=== PATIENT | male | born 1995 | race African-American/Black ===

== ENCOUNTER 2025-05-05 03:12 | Inpatient (IN) | payer MEDICAID ==
[~2025-05-05] VITALS: Ht 188 cm; Wt 92.5 kg
[2025-05-05 03:16] VITALS: O2SAT 96
[2025-05-05] MEDS: KETOROLAC 15MG/ML VIAL IV ONE (04:20)
[2025-05-05 04:32] LABS: HEMATOCRIT. 46.6 % (42.0-52.0); HEMOGLOBIN. 15.4 g/dL (14.0-18.0); MEAN PLATELET VOLUME 10.4 fl (7.4-10.4); PLATELET 184 x1000/uL (130-400); RED BLOOD CELL COUNT 5.42 mill/uL (4.7-6.1); RED CELL DISTRIBUTION WIDTH 13.6 % (11.6-14.6)
[2025-05-05 04:49] LABS: CREATININE 1.1 mg/dL (0.6-1.3)
[2025-05-05 04:50] LABS: UREA NITROGEN BLOOD 9 mg/dL (9-23)
[2025-05-05 04:51] LABS: ASPARTATE AMINOTRANSFERASE 16 IU/L (<34)
[2025-05-05 04:52] LABS: BILIRUBIN DIRECT 0.5 mg/dL (<=3.0); BILIRUBIN TOTAL 1.5 mg/dL (0.1-1.0); PROTEIN TOTAL 8.9 g/dL (6.0-8.3)
[2025-05-05] MEDS: SODIUM CHLORIDE 0.9% (SEPSIS BOLUS) IV ONE (04:52)
[2025-05-05] MEDS: PIPERACILLIN/TAZO 3.375G/50ML 50 ML IV ONE (05:01)
[2025-05-05 05:07] LABS: ATYPICAL LYMPHOCYTES 5; LYMPHOCYTES % MANUAL 4.0 % (20.0-50.0); MONOCYTES % MANUAL 4.0 % (2.0-8.0); NEUTROPHILS % MANUAL 87.0 % (45.0-75.0)
[2025-05-05 05:08] LABS: PLATELET ESTIMATE NORMAL
[2025-05-05] MEDS: VANCOMYCIN 1G PREMIX 200 ML IV ONE (05:11)
[2025-05-05] MEDS ORDERED: IOHEXOL-300 100 ML BOTTLE ONE (06:02)
[2025-05-05 06:48] LABS: CLARITY URINE CLEAR (CLEAR); COLOR URINE YELLOW (YELLOW); GLUCOSE URINE NEGATIVE (NEGATIVE); KETONES URINE 1+ (NEGATIVE); LEUKOCYTE ESTERASE URINE NEGATIVE (NEGATIVE); NITRITE URINE NEGATIVE (NEGATIVE); OCCULT BLOOD URINE NEGATIVE (NEGATIVE); PH URINE 5.5 (4.5-8.0); PROTEIN URINE NEGATIVE (NEGATIVE); SPECIFIC GRAVITY URINE 1.018 (1.005-1.030); UROBILINOGEN URINE 1.0 E.U./dL (0.2-1.0)
[2025-05-05 07:24] LABS: *AMPHETAMINES SCREEN URINE NEGATIVE (NEGATIVE); *BARBITURATES SCREEN URINE NEGATIVE (NEGATIVE); *BENZODIAZEPINES SCREEN URINE NEGATIVE (NEGATIVE)
[2025-05-05 07:25] LABS: *COCAINE SCREEN URINE NEGATIVE (NEGATIVE); CANNABINOID URINE SCREEN PRESUMPTIVE POSITIVE (NEGATIVE); ECSTASY MDMA SCREEN URINE NEGATIVE (NEGATIVE); METHADONE URINE SCREEN NEGATIVE (NEGATIVE); OPIATES URINE SCREEN NEGATIVE (NEGATIVE); PHENCYCLIDINE URINE SCREEN NEGATIVE (NEGATIVE)
[2025-05-05] MEDS ORDERED: IPRATROPIUM/ALBUTEROL 0.5-3(2.5)MG/3ML NEB HHN PRN (08:00)
[2025-05-05] MEDS ORDERED: DOCUSATE SODIUM 100MG CAPSULE PO PRN (08:00)
[2025-05-05] MEDS ORDERED: ONDANSETRON HCL 4MG/2ML INJ IV PRN ×2 (08:00→19:15)
[2025-05-05] MEDS: KCL 20MEQ/100ML PREMIX 50 ML IV NR (08:00)
[2025-05-05] MEDS ORDERED: GUAIFENESIN 200MG/10ML SUGAR FREE UDC PO PRN (08:00)
[2025-05-05] MEDS ORDERED: MAGNESIUM/ALUMINUM HYDROXIDE/SIMETHICONE 30ML UDC PO PRN (08:00)
[2025-05-05] MEDS ORDERED: PIPERACILLIN/TAZOBACTAM 3.375 G in DEXTROSE 5% WATER 50 ML IV SCH (08:00)
[2025-05-05] MEDS ORDERED: NALOXONE HCL 0.4MG/ML VIAL IV PRN (08:15)
[2025-05-05] MEDS: MORPHINE SULFATE 4 MG/ML INJ (FOR IV/IM USE) IV PRN (08:32)
[2025-05-05 08:51] VITALS: BP 168/92; PULSE 92; RESP 20; TEMP 37.2; O2SAT 98
[2025-05-05] MEDS: ACETAMINOPHEN 325MG TABLET PO PRN ×2 (10:07→16:20)
[2025-05-05] MEDS: CLONIDINE 0.1MG TABLET PO PRN (11:14)
[2025-05-05] MEDS: HYDROMORPHONE HCL/PF 2MG/ML INJ IV PRN (11:22)
[2025-05-05] MEDS ORDERED: SODIUM CHLORIDE 0.9% 1,000 ML IV SCH (12:00)
[2025-05-05 12:41] VITALS: BP 147/89; PULSE 95; RESP 20; TEMP 37.9; O2SAT 99
[2025-05-05 12:42] LABS: HEPATITIS A AB IGM NEGATIVE (Negative)
[2025-05-05 12:43] LABS: HEPATITIS B CORE AB IGM NEGATIVE (Negative); HEPATITIS C AB NON REACTIVE (Neg) (Negative)
[2025-05-05 14:41] LABS: PHOSPHORUS 2.4 mg/dL (2.5-4.9)
[2025-05-05] MEDS: PIPERACILLIN/TAZO 3.375G/50ML IV SCH (14:52)
[2025-05-05] MEDS: LACTATED RINGERS 1,000 ML IV SCH (14:52)
[2025-05-05 16:00] VITALS: BP 153/89; PULSE 107; RESP 20; TEMP 39.1; O2SAT 98
[2025-05-05] MEDS ORDERED: CEFAZOLIN SODIUM 1000MG/VIAL ONE (17:42)
[2025-05-05] MEDS ORDERED: PROPOFOL 200MG/20ML VIAL IV ONE ×3 (17:42→18:46)
[2025-05-05] MEDS ORDERED: LIDOCAINE HCL 1% 10 MG/ML 10ML VIAL ONE (17:42)
[2025-05-05] MEDS ORDERED: DEXAMETHASONE 4MG/ML 1ML VIAL ONE (17:42)
[2025-05-05] MEDS ORDERED: ONDANSETRON HCL 4MG/2ML INJ ONE (17:42)
[2025-05-05] MEDS ORDERED: FAMOTIDINE 20MG/2ML VIAL IV ONE (17:51)
[2025-05-05] MEDS ORDERED: KETOROLAC 30MG/ML VIAL ONE (17:53)
[2025-05-05] MEDS ORDERED: MIDAZOLAM HCL 2 MG/2 ML VIAL ONE (17:54)
[2025-05-05] MEDS ORDERED: FENTANYL CITRATE/PF 50MCG/ML 2ML VIAL ONE ×2 (17:54→18:41)
[2025-05-05] MEDS ORDERED: BUPIVACAINE HCL/PF 0.5% (5MG/ML) 10ML ONE (18:01)
[2025-05-05] MEDS ORDERED: LIDOCAINE HCL/EPINEPHRINE 1%-EPI 1:100,000 20ML VIAL ONE (18:01)
[2025-05-05 19:06] VITALS: BP 147/89; PULSE 95; RESP 20; TEMP 36.974
[2025-05-05] MEDS ORDERED: FENTANYL CITRATE/PF 50MCG/ML 2ML VIAL IV PRN (19:15)
[2025-05-05 20:00] VITALS: BP 136/72; PULSE 78; RESP 18; TEMP 36.9; O2SAT 97
[2025-05-05] MEDS: LACTATED RINGERS 1,000 ML IV ONE (22:06)
[2025-05-06] VITALS: BP 110/60; PULSE 75; RESP 18; TEMP 36.8; O2SAT 100
[2025-05-06 04:00] VITALS: BP 126/79; PULSE 61; RESP 18; TEMP 37; O2SAT 100
[2025-05-06 06:34] LABS: HEMATOCRIT. 41.0 % (42.0-52.0); HEMOGLOBIN. 13.3 g/dL (14.0-18.0); MEAN PLATELET VOLUME 10.1 fl (7.4-10.4); PLATELET 168 x1000/uL (130-400); RED BLOOD CELL COUNT 4.80 mill/uL (4.7-6.1); RED CELL DISTRIBUTION WIDTH 13.3 % (11.6-14.6)
[2025-05-06 06:48] LABS: CREATININE 0.8 mg/dL (0.6-1.3); TRIGLYCERIDE 53 mg/dL (0-150)
[2025-05-06 06:49] LABS: LDL CHOLESTEROL 55 mg/dL (5-100); UREA NITROGEN BLOOD 6 mg/dL (9-23)
[2025-05-06 06:50] LABS: T4 FREE 2.16 ng/dL (0.89-1.76)
[2025-05-06 08:00] VITALS: BP 146/95; PULSE 97; RESP 20; TEMP 37.2; O2SAT 100
[2025-05-06] MEDS: PANTOPRAZOLE SODIUM 40 MG/VIAL IV SCH (08:52)
[2025-05-06] MEDS: VANCOMYCIN 1.5GM/250ML 250 ML IV SCH (09:00)
[2025-05-06 09:48] LABS: BAND% 29.0 % (1.0-6.0); LYMPHOCYTES % MANUAL 2.0 % (20.0-50.0); MONOCYTES % MANUAL 4.0 % (2.0-8.0); NEUTROPHILS % MANUAL 65.0 % (45.0-75.0)
[2025-05-06 09:49] LABS: PLATELET ESTIMATE NORMAL
[2025-05-06 12:28] VITALS: BP 142/95; PULSE 75; TEMP 37.1
[2025-05-06] MEDS: KETOROLAC 15MG/ML VIAL IV PRN (14:47)
[2025-05-06 16:00] VITALS: BP 152/95; PULSE 79; RESP 20; TEMP 37.2; O2SAT 98
[2025-05-06] MEDS: POTASSIUM PHOSPHATE 15 MMOL in DEXT 5% WATER 245 ML IV SCH (17:54)
[2025-05-06 20:00] VITALS: BP 145/85; PULSE 77; RESP 18; TEMP 36.7; O2SAT 97
[2025-05-06] MEDS: AMOXICILLIN/POTASSIUM CLAVULANATE 875/125MG TAB PO SCH (21:29)
[2025-05-06] MEDS: MELATONIN 3MG TABLET PO SCH (22:44)
[2025-05-07] VITALS: BP 129/80; PULSE 68; RESP 20; TEMP 36.5; O2SAT 100
[2025-05-07 04:08] VITALS: BP 123/84; PULSE 73; RESP 20; TEMP 36.8; O2SAT 100
[2025-05-07] MEDS ORDERED: ONDANSETRON HCL 4MG TABLET PO PRN (04:45)
[2025-05-07] MEDS ORDERED: KETOROLAC 10MG TABLET PO PRN ×2 (04:45)
[2025-05-07 08:00] VITALS: BP 145/88; PULSE 86; RESP 20; TEMP 36.6; O2SAT 98
[2025-05-07 08:33] LABS: BASOPHILS % 0.4 % (0.0-2.0); EOSINOPHILS % 1.4 % (0.0-5.0); HEMATOCRIT. 42.6 % (42.0-52.0); HEMOGLOBIN. 13.9 g/dL (14.0-18.0); LYMPHOCYTES % 13.1 % (20.0-50.0); MEAN PLATELET VOLUME 9.7 fl (7.4-10.4); MONOCYTES % 7.3 % (2.0-8.0); NEUTROPHILS % 77.8 % (40.0-76.0); PLATELET 194 x1000/uL (130-400); RED BLOOD CELL COUNT 4.95 mill/uL (4.7-6.1); RED CELL DISTRIBUTION WIDTH 13.6 % (11.6-14.6)
[2025-05-07 08:42] LABS: CREATININE 0.8 mg/dL (0.6-1.3); UREA NITROGEN BLOOD 11 mg/dL (9-23)
[2025-05-07 08:43] LABS: ASPARTATE AMINOTRANSFERASE 21 IU/L (<34)
[2025-05-07 08:44] LABS: BILIRUBIN DIRECT 0.3 mg/dL (<=3.0); BILIRUBIN TOTAL 0.7 mg/dL (0.1-1.0); PROTEIN TOTAL 7.1 g/dL (6.0-8.3)
[2025-05-07] MEDS: POLYETHYLENE GLYCOL 3350 (17GM) 1 DOSE PACK PO SCH (10:11)
[2025-05-07] MEDS: PANTOPRAZOLE 40MG DR TABLET PO SCH (10:11)
[2025-05-07] MEDS: KETOROLAC 10MG TABLET PO PRN (10:21)
[2025-05-07] MEDS ORDERED: KETO10TA2 PO (11:22)
[2025-05-07] MEDS ORDERED: PANT40TA51 PO (11:22)
[2025-05-07] MEDS ORDERED: AMOX1TAB16 PO (11:22)
[2025-05-07] MEDS ORDERED: POLY17PO43 PO (11:22)
[2025-05-07 12:00] VITALS: BP 147/86; PULSE 71; RESP 18; TEMP 36.7; O2SAT 98
[2025-05-07 16:00] VITALS: BP 132/77; PULSE 88; RESP 18; TEMP 36.6; O2SAT 96
[2025-05-07 20:07] VITALS: BP 145/86; PULSE 71; RESP 18; TEMP 37; O2SAT 100
[2025-05-08] VITALS: BP 143/81; PULSE 68; RESP 18; TEMP 37; O2SAT 99
[2025-05-08 04:00] VITALS: BP 141/67; PULSE 63; RESP 20; TEMP 36.9; O2SAT 97
[2025-05-08 07:18] LABS: BASOPHILS % 0.7 % (0.0-2.0); CREATININE 0.8 mg/dL (0.6-1.3); EOSINOPHILS % 3.0 % (0.0-5.0); HEMATOCRIT. 40.9 % (42.0-52.0); HEMOGLOBIN. 13.8 g/dL (14.0-18.0); LYMPHOCYTES % 19.2 % (20.0-50.0); MEAN PLATELET VOLUME 9.4 fl (7.4-10.4); MONOCYTES % 9.2 % (2.0-8.0); NEUTROPHILS % 67.9 % (40.0-76.0); PLATELET 221 x1000/uL (130-400); RED BLOOD CELL COUNT 4.86 mill/uL (4.7-6.1); RED CELL DISTRIBUTION WIDTH 13.6 % (11.6-14.6); UREA NITROGEN BLOOD 14 mg/dL (9-23)
[2025-05-08 08:00] VITALS: BP 135/85; PULSE 77; RESP 20; TEMP 36.7; O2SAT 97
[2025-05-08] MEDS: INFLUENZA VACCINE 05/PF 0.5 ML SYRINGE IM ONE (08:53)
[2025-05-08 11:46] VITALS: BP 138/85; PULSE 77; RESP 20; TEMP 98.1
[2025-05-08 12:00] VITALS: BP 129/76; PULSE 79; RESP 18; TEMP 36.6; O2SAT 98
== END 2025-05-08 13:00 | disposition home or self-care (01) | DRG 720 ==
LOC: ER 03:12 → 7WST 05:24 → EDBEDREQ 05:25 → EDBEDREQTM 05:25 → ENRESERV 06:05
PROVIDERS: ADMIT Hospitalist; ATTEND Hospitalist
PROC: 0D9Q3ZZ Drainage of Anus, Percutaneous Approach (ICD-10-PCS; 2025-05-05)
PROC: 3E02340 Introduction of Influenza Vaccine into Muscle, Percutaneous Approach (ICD-10-PCS; principal; 2025-05-08)
DX: A41.9 Sepsis, unspecified organism (principal); E87.20 Acidosis, unspecified; E83.39 Other disorders of phosphorus metabolism; K61.0 Anal abscess; F12.10 Cannabis abuse, uncomplicated; E87.6 Hypokalemia; R17 Unspecified jaundice; Z23 Encounter for immunization
CPT/HCPCS: 36415; 71045; 74177; 80048; 80061; 80076; 80202; 80305; 81003; 83605; 83735; 84100; 84145; 84153; 84439; 84443; 85025; 86705; 86709; 87070; 87075; 87076; 87077; 87186; 87340; 90686; 93970; 96365; 96368; 96375; 99291; J0665; J0690; J1100; J1171; J1308; J1885; J2003; J2004; J2250; J2270; J2405; J2470; J2543; J2704; J3010; J3373; J3480; J3490; J7030; J7060; J7120; Q9967